=== PATIENT | female | born 1935 | race African-American/Black ===

== ENCOUNTER 2021-11-18 10:52 | Inpatient (IN) | payer MEDICARE, MEDICAID ==
[~2021-11-18] VITALS: Ht 162.6 cm; Wt 105.7 kg
[~2021-11-18 10:52] MED LIST: AMLO10TA80 PO; ASPI-1073 PO; BETH25TA PO; DOCU-138 PO; FURO40TA5 PO; ISOSORBIDE PO; METR500T PO; POTASSIUM PO; PRAV40TA PO; PRAV40TA58; SYSOS OP
[2021-11-18 13:01] LABS: HEMATOCRIT. 36.3 % (36.0-48.0); HEMOGLOBIN. 11.9 g/dL (12.0-16.0); MEAN CORPUSCULAR HEMOGLOBIN 28.2 pg (28.0-32.0); MEAN CORPUSCULAR VOLUME 85.9 fL (81.0-99.0); MEAN PLATELET VOLUME 10.9 fl (7.4-10.4); PLATELET 114 x1000/uL (130-400); RED BLOOD CELL COUNT 4.23 mill/uL (4.2-5.4); RED CELL DISTRIBUTION WIDTH 16.7 % (11.6-14.6)
[2021-11-18 13:08] LABS: CHLORIDE 110 mEq/L (98-107)
[2021-11-18 13:17] LABS: ETHANOL BLOOD < 10 mg/dL
[2021-11-18 13:24] LABS: CREATINE KINASE 326 IU/L (26-192)
[2021-11-18 13:34] LABS: PLATELET ESTIMATE SLIGHTLY DECREASED
[2021-11-18] MEDS ORDERED: LIDOCAINE HCL/PF 1% 10 MG/ML 5ML VIAL ONE (14:19)
[2021-11-18] MEDS ORDERED: SODIUM CHLORIDE 0.9% 1,000 ML IV ONE (16:00)
[2021-11-18] MEDS ORDERED: AZITHROMYCIN 500MG/250ML 250 ML IV ONE (16:15)
[2021-11-18] MEDS ORDERED: CEFTRIAXONE 1 G PREMIX 50 ML IV ONE (16:15)
[2021-11-18] MEDS ORDERED: IOHEXOL-350 100 ML BOTTLE ONE (16:52)
[2021-11-18] MEDS ORDERED: CEFTRIAXONE 1 G PREMIX 50 ML IV NR (17:15)
[2021-11-18] MEDS ORDERED: AZITHROMYCIN 500MG/250ML 250 ML IV NR (17:15)
[2021-11-18] MEDS ORDERED: ENOXAPARIN 100MG/ML SYR SUBCUT ONE (17:45)
[2021-11-18 22:06] VITALS: BP 160/125
[2021-11-19] VITALS (12 sets, daily range): BP systolic 120–176; BP diastolic 9–89
[2021-11-19] MEDS ORDERED: DEXTROSE 50% WATER 50ML SYRINGE IV PRN (00:15)
[2021-11-19] MEDS: DEXT 5%/0.9% NACL KCL 20MEQ/L 1,000 ML IV SCH ×2 (04:20→18:41)
[2021-11-19] MEDS ORDERED: SODI15DR7 EACHEYE (04:36)
[2021-11-19] MEDS ORDERED: ALLO100T PO (04:36)
[2021-11-19] MEDS ORDERED: FOLI-43 MT (04:36)
[2021-11-19] MEDS ORDERED: OXYC1TAB5 MT (04:36)
[2021-11-19] MEDS ORDERED: HYDR-4135 PO (04:36)
[2021-11-19] MEDS ORDERED: LOSA100T32 PO (04:36)
[2021-11-19] MEDS ORDERED: PRAV40TA58 PO (04:36)
[2021-11-19] MEDS ORDERED: PREG150C PO (04:36)
[2021-11-19] MEDS ORDERED: NETA2.5D EACHEYE (04:36)
[2021-11-19] MEDS ORDERED: LINA5TAB PO (04:36)
[2021-11-19] MEDS ORDERED: FERR-71 MT (04:36)
[2021-11-19] MEDS ORDERED: HYDR1SYR7 MT (04:36)
[2021-11-19 05:50] LABS: BASOPHILS % 0.3 % (0.0-2.0); EOSINOPHILS % 0.1 % (0.0-5.0); HEMATOCRIT. 34.9 % (36.0-48.0); HEMOGLOBIN. 11.3 g/dL (12.0-16.0); LYMPHOCYTES % 7.1 % (20.0-50.0); MEAN CORPUSCULAR HEMOGLOBIN 28.2 pg (28.0-32.0); MEAN CORPUSCULAR VOLUME 86.9 fL (81.0-99.0); MONOCYTES % 7.7 % (2.0-8.0); NEUTROPHILS % 84.8 % (40.0-76.0); PLATELET 98 x1000/uL (130-400); RED BLOOD CELL COUNT 4.01 mill/uL (4.2-5.4); RED CELL DISTRIBUTION WIDTH 16.4 % (11.6-14.6)
[2021-11-19 06:02] LABS: CHLORIDE 112 mEq/L (98-107)
[2021-11-19 06:17] LABS: HDL CHOLESTEROL 67 mg/dL (40-59); LDL CHOLESTEROL 49 mg/dL (5-100)
[2021-11-19] MEDS: INSULIN LISPRO 100 UNITS/ML SUBCUT SCH ×4 (07:04→21:00)
[2021-11-19] MEDS: BLOOD SUGAR DIAGNOSTIC STRIP TEST SCH ×4 (07:04→21:16)
[2021-11-19] MEDS ORDERED: ENOXAPARIN 40MG/0.4ML SYR SUBCUT SCH (09:00)
[2021-11-19] MEDS: HYDRALAZINE 20MG/ML VIAL IV PRN (09:57)
[2021-11-19] MEDS: PANTOPRAZOLE SODIUM 40 MG/VIAL IV SCH (09:57)
[2021-11-19] MEDS: AMLODIPINE 10MG TABLET PO SCH (10:15)
[2021-11-19] MEDS ORDERED: METOPROLOL TARTRATE 5MG/5ML VIAL IV PRN (12:00)
[2021-11-19] MEDS ORDERED: NALOXONE HCL 0.4MG/ML VIAL IV PRN (12:45)
[2021-11-19] MEDS ORDERED: SODIUM CHLORIDE EACHEYE SCH (13:00)
[2021-11-19] MEDS ORDERED: AMIODARONE HCL 900 MG in DEXT 5% WATER 482 ML IV SCH (13:00)
[2021-11-19] MEDS ORDERED: [UNRECOGNIZED DRUG - OTHER] EACHEYE SCH (13:00)
[2021-11-19] MEDS ORDERED: AMIODARONE HCL 150 MG in DEXT 5% WATER 100 ML IV NR (13:30)
[2021-11-19] MEDS ORDERED: IOHEXOL-300 100 ML BOTTLE ONE (18:27)
[2021-11-19] MEDS: POLYVINYL ALCOHOL OPHTH DROPS 15ML BOTHEYE SCH (18:41)
[2021-11-19] MEDS: IPRATROPIUM BROMIDE (0.02%) 0.5MG/2.5ML NEB HHN SCH (20:28)
[2021-11-19] MEDS: BUDESONIDE 0.5MG/2ML NEB HHN SCH (20:28)
[2021-11-19] MEDS ORDERED: LORAZEPAM 2MG/ML CPJ IV PRN (21:45)
[2021-11-19] MEDS ORDERED: ACETAMINOPHEN 650MG SUPP PR PRN (22:00)
[2021-11-19 23:40] LABS: BASOPHILS % 0.4 % (0.0-2.0); EOSINOPHILS % 0.1 % (0.0-5.0); HEMATOCRIT. 35.3 % (36.0-48.0); HEMOGLOBIN. 11.3 g/dL (12.0-16.0); MEAN CORPUSCULAR VOLUME 87.2 fL (81.0-99.0); MEAN PLATELET VOLUME 11.8 fl (7.4-10.4); MONOCYTES % 8.9 % (2.0-8.0); NEUTROPHILS % 81.6 % (40.0-76.0); PLATELET 104 x1000/uL (130-400); RED BLOOD CELL COUNT 4.05 mill/uL (4.2-5.4); RED CELL DISTRIBUTION WIDTH 16.8 % (11.6-14.6)
[2021-11-20] VITALS (15 sets, daily range): BP systolic 111–175; BP diastolic 62–92
[2021-11-20] MEDS: POLYVINYL ALCOHOL OPHTH DROPS 15ML BOTHEYE SCH ×4 (02:03→17:24)
[2021-11-20] MEDS: DEXT 5%/0.9% NACL KCL 20MEQ/L 1,000 ML IV SCH (04:59)
[2021-11-20 05:32] LABS: BASOPHILS % 0.3 % (0.0-2.0); EOSINOPHILS % 0.9 % (0.0-5.0); HEMATOCRIT. 32.5 % (36.0-48.0); HEMOGLOBIN. 10.7 g/dL (12.0-16.0); LYMPHOCYTES % 7.4 % (20.0-50.0); MEAN CORPUSCULAR HEMOGLOBIN 28.1 pg (28.0-32.0); MEAN CORPUSCULAR VOLUME 85.6 fL (81.0-99.0); MEAN PLATELET VOLUME 11.1 fl (7.4-10.4); MONOCYTES % 8.4 % (2.0-8.0); PLATELET 99 x1000/uL (130-400); RED BLOOD CELL COUNT 3.79 mill/uL (4.2-5.4); RED CELL DISTRIBUTION WIDTH 16.9 % (11.6-14.6)
[2021-11-20] MEDS: BLOOD SUGAR DIAGNOSTIC STRIP TEST SCH ×4 (06:43→21:47)
[2021-11-20] MEDS: INSULIN LISPRO 100 UNITS/ML SUBCUT SCH ×4 (07:30→21:00)
[2021-11-20] MEDS: AMLODIPINE 10MG TABLET PO SCH (07:31)
[2021-11-20] MEDS: PANTOPRAZOLE SODIUM 40 MG/VIAL IV SCH (07:41)
[2021-11-20] MEDS: IPRATROPIUM BROMIDE (0.02%) 0.5MG/2.5ML NEB HHN SCH ×3 (08:43→19:38)
[2021-11-20] MEDS: BUDESONIDE 0.5MG/2ML NEB HHN SCH ×2 (08:43→19:38)
[2021-11-20] MEDS ORDERED: ENOXAPARIN 30MG/0.3ML SYR SUBCUT SCH (09:00)
[2021-11-20] MEDS: HYDRALAZINE 20MG/ML VIAL IV PRN (11:04)
[2021-11-20] MEDS: MORPHINE SULFATE 2 MG/ML CPJ (NOT FOR IM USE) IV PRN ×2 (12:20→17:25)
[2021-11-20] MEDS ORDERED: IOHEXOL-300 100 ML BOTTLE ONE (20:08)
[2021-11-20] MEDS ORDERED: AMIODARONE HCL 900 MG in DEXT 5% WATER 482 ML IV SCH (20:30)
[2021-11-20] MEDS ORDERED: AMIODARONE HCL 150 MG in DEXT 5% WATER 100 ML IV NR (20:30)
[2021-11-21] VITALS (12 sets, daily range): BP systolic 123–156; BP diastolic 60–91
[2021-11-21] MEDS: IPRATROPIUM BROMIDE (0.02%) 0.5MG/2.5ML NEB HHN SCH ×4 (00:36→19:15)
[2021-11-21] MEDS: POLYVINYL ALCOHOL OPHTH DROPS 15ML BOTHEYE SCH ×5 (01:37→23:31)
[2021-11-21] MEDS: BLOOD SUGAR DIAGNOSTIC STRIP TEST SCH ×4 (06:55→21:17)
[2021-11-21] MEDS: INSULIN LISPRO 100 UNITS/ML SUBCUT SCH ×4 (08:00→21:00)
[2021-11-21] MEDS: BUDESONIDE 0.5MG/2ML NEB HHN SCH (08:25)
[2021-11-21] MEDS ORDERED: ENOXAPARIN 40MG/0.4ML SYR SUBCUT SCH (09:00)
[2021-11-21] MEDS: PANTOPRAZOLE SODIUM 40 MG/VIAL IV SCH ×2 (09:41→09:57)
[2021-11-21] MEDS: AMLODIPINE 10MG TABLET PO SCH ×2 (09:42→09:58)
[2021-11-21 10:30] LABS: CLARITY URINE CLEAR (CLEAR); COLOR URINE YELLOW (YELLOW); KETONES URINE NEGATIVE (NEGATIVE); LEUKOCYTE ESTERASE URINE NEGATIVE (NEGATIVE); NITRITE URINE NEGATIVE (NEGATIVE); OCCULT BLOOD URINE TRACE (NEGATIVE); PROTEIN URINE 3+ (NEGATIVE); SPECIFIC GRAVITY URINE 1.035 (1.005-1.030); UROBILINOGEN URINE 0.2 E.U./dL (0.2-1.0)
[2021-11-21 13:59] LABS: *AMPHETAMINES SCREEN URINE NEGATIVE (NEGATIVE); *BARBITURATES SCREEN URINE NEGATIVE (NEGATIVE); *BENZODIAZEPINES SCREEN URINE NEGATIVE (NEGATIVE); *COCAINE SCREEN URINE NEGATIVE (NEGATIVE); CANNABINOID URINE SCREEN NEGATIVE (NEGATIVE); METHADONE URINE SCREEN NEGATIVE (NEGATIVE); OPIATES URINE SCREEN PRESUMTIVE POSITIVE (NEGATIVE); PHENCYCLIDINE URINE SCREEN NEGATIVE (NEGATIVE)
[2021-11-21] MEDS: MORPHINE SULFATE 2 MG/ML CPJ (NOT FOR IM USE) IV PRN ×2 (18:12→22:25)
[2021-11-21] MEDS: EYE EACHEYE SCH (18:15)
[2021-11-21] MEDS: SODIUM CHLORIDE 5% EACHEYE SCH (18:15)
[2021-11-21] MEDS ORDERED: NETARSUDIL MESYLATE EACHEYE SCH (21:00)
[2021-11-22] VITALS (10 sets, daily range): BP systolic 137–165; BP diastolic 42–99
[2021-11-22] MEDS: BUDESONIDE 0.5MG/2ML NEB HHN SCH ×2 (01:15→07:45)
[2021-11-22] MEDS: IPRATROPIUM BROMIDE (0.02%) 0.5MG/2.5ML NEB HHN SCH ×4 (01:58→20:11)
[2021-11-22] MEDS: HYDRALAZINE 20MG/ML VIAL IV PRN (04:01)
[2021-11-22] MEDS: POLYVINYL ALCOHOL OPHTH DROPS 15ML BOTHEYE SCH ×4 (05:18→23:56)
[2021-11-22] MEDS: BLOOD SUGAR DIAGNOSTIC STRIP TEST SCH ×4 (07:19→21:01)
[2021-11-22] MEDS: INSULIN LISPRO 100 UNITS/ML SUBCUT SCH ×4 (07:19→21:00)
[2021-11-22] MEDS: PANTOPRAZOLE SODIUM 40 MG/VIAL IV SCH (10:31)
[2021-11-22] MEDS: AMLODIPINE 10MG TABLET PO SCH (10:31)
[2021-11-22] MEDS: SODIUM CHLORIDE 5% EACHEYE SCH ×3 (10:32→17:28)
[2021-11-22] MEDS: EYE EACHEYE SCH ×3 (10:32→17:28)
[2021-11-22 11:46] LABS: HEMATOCRIT. 34.7 % (36.0-48.0); HEMOGLOBIN. 11.3 g/dL (12.0-16.0); MEAN CORPUSCULAR HEMOGLOBIN 28.2 pg (28.0-32.0); MEAN CORPUSCULAR VOLUME 86.5 fL (81.0-99.0); MEAN PLATELET VOLUME 11.1 fl (7.4-10.4); PLATELET 114 x1000/uL (130-400); RED BLOOD CELL COUNT 4.01 mill/uL (4.2-5.4); RED CELL DISTRIBUTION WIDTH 16.6 % (11.6-14.6)
[2021-11-22 12:49] LABS: PLATELET ESTIMATE SLIGHTLY DECREASED
[2021-11-22] MEDS ORDERED: CEFTRIAXONE 1 G PREMIX 50 ML IV SCH (15:30)
[2021-11-22] MEDS: CEFTRIAXONE 1,000 MG in DEXTROSE 5% WATER 50 ML IV SCH (17:28)
[2021-11-22] MEDS: AMIODARONE HCL 200 MG TABLET PO SCH (20:40)
[2021-11-23] VITALS (10 sets, daily range): BP systolic 123–157; BP diastolic 54–110
[2021-11-23] MEDS: IPRATROPIUM BROMIDE (0.02%) 0.5MG/2.5ML NEB HHN SCH ×4 (01:02→20:58)
[2021-11-23] MEDS: POLYVINYL ALCOHOL OPHTH DROPS 15ML BOTHEYE SCH ×3 (06:03→17:30)
[2021-11-23] MEDS: INSULIN LISPRO 100 UNITS/ML SUBCUT SCH ×4 (08:00→21:00)
[2021-11-23] MEDS: BLOOD SUGAR DIAGNOSTIC STRIP TEST SCH ×4 (08:03→21:20)
[2021-11-23] MEDS: AMIODARONE HCL 200 MG TABLET PO SCH ×2 (08:27→21:20)
[2021-11-23] MEDS: PANTOPRAZOLE SODIUM 40 MG/VIAL IV SCH (08:28)
[2021-11-23] MEDS: AMLODIPINE 10MG TABLET PO SCH (08:28)
[2021-11-23] MEDS: SODIUM CHLORIDE 5% EACHEYE SCH ×3 (08:29→17:30)
[2021-11-23] MEDS: EYE EACHEYE SCH ×3 (08:29→17:30)
[2021-11-23] MEDS: CEFTRIAXONE 1,000 MG in DEXTROSE 5% WATER 50 ML IV SCH (17:30)
[2021-11-23] MEDS: APIXABAN 5 MG TABLET PO SCH (17:31)
[2021-11-24] VITALS (13 sets, daily range): BP systolic 133–167; BP diastolic 54–100
[2021-11-24] MEDS: POLYVINYL ALCOHOL OPHTH DROPS 15ML BOTHEYE SCH ×4 (00:14→17:45)
[2021-11-24] MEDS: IPRATROPIUM BROMIDE (0.02%) 0.5MG/2.5ML NEB HHN SCH ×3 (02:05→15:04)
[2021-11-24] MEDS: MORPHINE SULFATE 2 MG/ML CPJ (NOT FOR IM USE) IV PRN (04:19)
[2021-11-24] MEDS: BLOOD SUGAR DIAGNOSTIC STRIP TEST SCH ×4 (06:46→21:30)
[2021-11-24] MEDS: INSULIN LISPRO 100 UNITS/ML SUBCUT SCH ×4 (07:15→21:00)
[2021-11-24] MEDS: PANTOPRAZOLE SODIUM 40 MG/VIAL IV SCH (09:03)
[2021-11-24] MEDS: APIXABAN 5 MG TABLET PO SCH ×2 (09:03→17:10)
[2021-11-24] MEDS: EYE EACHEYE SCH ×3 (09:03→17:09)
[2021-11-24] MEDS: SODIUM CHLORIDE 5% EACHEYE SCH ×3 (09:03→17:09)
[2021-11-24] MEDS: AMLODIPINE 10MG TABLET PO SCH (09:04)
[2021-11-24] MEDS: AMIODARONE HCL 200 MG TABLET PO SCH ×2 (09:04→21:28)
[2021-11-24] MEDS: RHOPRESSA 0.02% OP SCH (15:00)
[2021-11-24] MEDS: CEFTRIAXONE 1,000 MG in DEXTROSE 5% WATER 50 ML IV SCH (17:09)
[2021-11-24] MEDS: IPRATROPIUM/ALBUTEROL 0.5-3(2.5)MG/3ML NEB HHN PRN (20:51)
[2021-11-24] MEDS ORDERED: NON FORMULARY PATIENT HOME MED OP SCH (21:00)
[2021-11-24] MEDS: MURO OP SCH (21:28)
[2021-11-25] VITALS (19 sets, daily range): BP systolic 130–162; BP diastolic 42–69
[2021-11-25] MEDS: POLYVINYL ALCOHOL OPHTH DROPS 15ML BOTHEYE SCH ×4 (00:01→17:30)
[2021-11-25] MEDS: BLOOD SUGAR DIAGNOSTIC STRIP TEST SCH ×4 (06:05→21:36)
[2021-11-25] MEDS: INSULIN LISPRO 100 UNITS/ML SUBCUT SCH ×4 (08:00→21:00)
[2021-11-25] MEDS ORDERED: NON FORMULARY PATIENT HOME MED OP SCH (09:00)
[2021-11-25] MEDS: AMLODIPINE 10MG TABLET PO SCH (09:01)
[2021-11-25] MEDS: APIXABAN 5 MG TABLET PO SCH ×2 (09:01→17:30)
[2021-11-25] MEDS: AMIODARONE HCL 200 MG TABLET PO SCH ×2 (09:01→20:55)
[2021-11-25] MEDS: RHOPRESSA 0.02% OP SCH (09:01)
[2021-11-25] MEDS: SODIUM CHLORIDE 5% EACHEYE SCH ×3 (09:02→17:30)
[2021-11-25] MEDS: PANTOPRAZOLE SODIUM 40 MG/VIAL IV SCH (09:02)
[2021-11-25] MEDS: EYE EACHEYE SCH ×3 (09:02→17:30)
[2021-11-25] MEDS: IPRATROPIUM/ALBUTEROL 0.5-3(2.5)MG/3ML NEB HHN PRN ×2 (15:19→21:21)
[2021-11-25 16:17] LABS: BASOPHILS % 0.7 % (0.0-2.0); EOSINOPHILS % 3.9 % (0.0-5.0); HEMATOCRIT. 32.3 % (36.0-48.0); HEMOGLOBIN. 10.3 g/dL (12.0-16.0); MEAN CORPUSCULAR HEMOGLOBIN 27.9 pg (28.0-32.0); MEAN CORPUSCULAR VOLUME 87.8 fL (81.0-99.0); MEAN PLATELET VOLUME 10.2 fl (7.4-10.4); MONOCYTES % 13.6 % (2.0-8.0); NEUTROPHILS % 71.8 % (40.0-76.0); PLATELET 171 x1000/uL (130-400); RED BLOOD CELL COUNT 3.67 mill/uL (4.2-5.4); RED CELL DISTRIBUTION WIDTH 16.8 % (11.6-14.6)
[2021-11-25] MEDS: CEFTRIAXONE 1,000 MG in DEXTROSE 5% WATER 50 ML IV SCH (17:30)
[2021-11-25] MEDS: MURO OP SCH (21:43)
[2021-11-26] VITALS (27 sets, daily range): BP systolic 120–184; BP diastolic 39–105
[2021-11-26] MEDS: POLYVINYL ALCOHOL OPHTH DROPS 15ML BOTHEYE SCH ×4 (00:09→17:19)
[2021-11-26] MEDS: IPRATROPIUM/ALBUTEROL 0.5-3(2.5)MG/3ML NEB HHN PRN ×2 (02:21→13:15)
[2021-11-26] MEDS: BLOOD SUGAR DIAGNOSTIC STRIP TEST SCH ×4 (07:49→21:16)
[2021-11-26] MEDS: INSULIN LISPRO 100 UNITS/ML SUBCUT SCH ×4 (08:00→21:00)
[2021-11-26] MEDS: AMIODARONE HCL 200 MG TABLET PO SCH ×2 (09:12→21:28)
[2021-11-26] MEDS: AMLODIPINE 10MG TABLET PO SCH (09:12)
[2021-11-26] MEDS: RHOPRESSA 0.02% OP SCH (09:13)
[2021-11-26] MEDS: PANTOPRAZOLE SODIUM 40 MG/VIAL IV SCH (09:13)
[2021-11-26] MEDS: SODIUM CHLORIDE 5% EACHEYE SCH ×3 (09:13→17:19)
[2021-11-26] MEDS: EYE EACHEYE SCH ×3 (09:13→17:19)
[2021-11-26] MEDS: APIXABAN 5 MG TABLET PO SCH ×2 (09:16→17:20)
[2021-11-26] MEDS: CEFTRIAXONE 1,000 MG in DEXTROSE 5% WATER 50 ML IV SCH (17:18)
[2021-11-26] MEDS ORDERED: IPRATROPIUM/ALBUTEROL 0.5-3(2.5)MG/3ML NEB HHN SCH (18:00)
[2021-11-26] MEDS: MURO OP SCH (21:28)
[2021-11-26] MEDS ORDERED: HYDROCODONE/ACETAMINOPHEN 5/325MG TABLET PO PRN (21:45)
== END 2021-11-26 23:56 | DRG 64 ==
LOC: ER 11:02 → 3WST 17:18 → EDBEDREQ 17:22 → EDBEDREQSVC 17:22 → EDBEDREQTM 17:22 → ENRESERV 19:24 → 5EST 11-19 13:10
PROVIDERS: ADMIT Internal Medicine; ATTEND Internal Medicine
PROC: 02HV33Z Insertion of Infusion Device into Superior Vena Cava, Percutaneous Approach (ICD-10-PCS; 2021-11-19)
PROC: B548ZZA Ultrasonography of Superior Vena Cava, Guidance (ICD-10-PCS; 2021-11-19)
PROC: B5181ZA Fluoroscopy of Superior Vena Cava using Low Osmolar Contrast, Guidance (ICD-10-PCS; 2021-11-19)
PROC: 4A10X4Z Monitoring of Central Nervous Electrical Activity, External Approach (ICD-10-PCS; principal; 2021-11-20)
DX: I63.233 Cerebral infarction due to unspecified occlusion or stenosis of bilateral carotid arteries (principal); I21.4 Non-ST elevation (NSTEMI) myocardial infarction; N17.0 Acute kidney failure with tubular necrosis; G93.40 Encephalopathy, unspecified; Z68.41 Body mass index [BMI] 40.0-44.9, adult; E78.5 Hyperlipidemia, unspecified; E87.8 Other disorders of electrolyte and fluid balance, not elsewhere classified; D69.6 Thrombocytopenia, unspecified; E11.9 Type 2 diabetes mellitus without complications; E66.01 Morbid (severe) obesity due to excess calories; I11.0 Hypertensive heart disease with heart failure; M19.90 Unspecified osteoarthritis, unspecified site; I48.0 Paroxysmal atrial fibrillation; I25.10 Atherosclerotic heart disease of native coronary artery without angina pectoris; R60.9 Edema, unspecified; I16.0 Hypertensive urgency; L89.626 Pressure-induced deep tissue damage of left heel; I72.8 Aneurysm of other specified arteries; I50.9 Heart failure, unspecified; J44.9 Chronic obstructive pulmonary disease, unspecified; W18.39XA Other fall on same level, initial encounter; K21.9 Gastro-esophageal reflux disease without esophagitis; M77.9 Enthesopathy, unspecified; Z87.891 Personal history of nicotine dependence; Z95.5 Presence of coronary angioplasty implant and graft; Z79.82 Long term (current) use of aspirin; Z79.899 Other long term (current) drug therapy; Y93.89 Activity, other specified; Y92.098 Other place in other non-institutional residence as the place of occurrence of the external cause; Y99.8 Other external cause status; Z86.73 Personal history of transient ischemic attack (TIA), and cerebral infarction without residual deficits
CPT/HCPCS: 36415; 36573; 70496; 70498; 70551; 71045; 71260; 73610; 73630; 80048; 80053; 80061; 80305; 80320; 81003; 82140; 82270; 82550; 82962; 83036; 83605; 83880; 84145; 84443; 84484; 85025; 92610; 93005; 93306; 94640; 94664; 95816; 97110; 97163; 97166; 97530; 99291; C1725; C9113; J0282; J0360; J0456; J0696; J2060; J2270; J3490; J7030; J7060; J7626; Q9967; G0480

== ENCOUNTER 2021-11-26 23:40 | Inpatient (IN) | payer MEDICARE, MEDICAID ==
[~2021-11-26] VITALS: Ht 162.6 cm; Wt 94.3 kg
[2021-11-26 22:40] VITALS: BP 104/48
[2021-11-26 23:30] VITALS: BP 104/48
[~2021-11-26 23:40] MED LIST changes: +ALLO100T PO; +FERR-71 MT; +FOLI-43 MT; +HYDR-4135 PO; +HYDR1SYR7 MT; +LINA5TAB PO; +LOSA100T32 PO; +NETA2.5D EACHEYE; +OXYC1TAB5 MT; +PRAV40TA58 PO; +PREG150C PO; +SODI15DR7 EACHEYE
[2021-11-27] MEDS ORDERED: NON FORMULARY PATIENT HOME MED XX SCH ×3 (01:00)
[2021-11-27] MEDS ORDERED: CEFTRIAXONE 1,000 MG in DEXTROSE 5% WATER 50 ML IV SCH (01:00)
[2021-11-27] MEDS ORDERED: HYDRALAZINE 20MG/ML VIAL IV PRN (01:15)
[2021-11-27] MEDS ORDERED: ACETAMINOPHEN 650MG SUPP PR PRN (01:15)
[2021-11-27] MEDS ORDERED: DEXTROSE 50% WATER 50ML SYRINGE IV PRN (01:15)
[2021-11-27] MEDS ORDERED: METOPROLOL TARTRATE 5MG/5ML VIAL IV PRN (01:15)
[2021-11-27] MEDS ORDERED: HYDRALAZINE 10 MG in SODIUM CHLORIDE 0.9% 49.5 ML IV PRN (02:00)
[2021-11-27 08:00] VITALS: BP 113/81
[2021-11-27] MEDS: INSULIN LISPRO 100 UNITS/ML SUBCUT SCH ×4 (09:00→21:00)
[2021-11-27] MEDS: IPRATROPIUM/ALBUTEROL 0.5-3(2.5)MG/3ML NEB HHN SCH ×3 (09:38→19:58)
[2021-11-27] MEDS ORDERED: BISACODYL 5MG TABLET PO PRN (11:00)
[2021-11-27] MEDS: APIXABAN 5 MG TABLET PO SCH ×2 (11:12→17:12)
[2021-11-27] MEDS: PANTOPRAZOLE 40MG DR TABLET PO SCH (11:12)
[2021-11-27] MEDS: AMIODARONE HCL 200 MG TABLET PO SCH ×2 (11:13→21:58)
[2021-11-27] MEDS: AMLODIPINE 10MG TABLET PO SCH (11:14)
[2021-11-27] MEDS: BLOOD SUGAR DIAGNOSTIC STRIP TEST SCH ×3 (11:15→21:00)
[2021-11-27 12:00] VITALS: BP 113/88
[2021-11-27] MEDS: TRAMADOL 50MG TABLET PO PRN (12:17)
[2021-11-27] MEDS: POLYVINYL ALCOHOL OPHTH DROPS 15ML BOTHEYE SCH ×2 (12:18→17:12)
[2021-11-27 19:50] VITALS: BP 107/62
[2021-11-27 20:30] VITALS: BP 151/46
[2021-11-27] MEDS: [UNRECOGNIZED DRUG - OTHER] OP SCH ×2 (21:58→21:59)
[2021-11-28] MEDS: IPRATROPIUM/ALBUTEROL 0.5-3(2.5)MG/3ML NEB HHN SCH ×3 (01:42→19:49)
[2021-11-28] MEDS: BLOOD SUGAR DIAGNOSTIC STRIP TEST SCH ×4 (06:25→21:36)
[2021-11-28] MEDS: PANTOPRAZOLE 40MG DR TABLET PO SCH (06:28)
[2021-11-28] MEDS: POLYVINYL ALCOHOL OPHTH DROPS 15ML BOTHEYE SCH ×4 (06:29→17:16)
[2021-11-28 07:54] VITALS: BP 141/48
[2021-11-28] MEDS: INSULIN LISPRO 100 UNITS/ML SUBCUT SCH ×4 (08:11→21:00)
[2021-11-28] MEDS: AMIODARONE HCL 200 MG TABLET PO SCH ×2 (09:30→21:14)
[2021-11-28] MEDS: APIXABAN 5 MG TABLET PO SCH ×2 (09:30→17:00)
[2021-11-28] MEDS: AMLODIPINE 10MG TABLET PO SCH (09:30)
[2021-11-28] MEDS: TRAMADOL 50MG TABLET PO PRN (09:31)
[2021-11-28] MEDS: RHOPRESSA 0.02% OP SCH (09:32)
[2021-11-28] MEDS: SODIUM CHLORIDE 5% OP SCH ×3 (09:32→17:00)
[2021-11-28] MEDS: [UNRECOGNIZED DRUG - OTHER] OP SCH ×3 (09:32→17:00)
[2021-11-28 15:50] LABS: EOSINOPHILS % 2.9 % (0.0-5.0); HEMATOCRIT. 27.3 % (36.0-48.0); HEMOGLOBIN. 8.8 g/dL (12.0-16.0); LYMPHOCYTES % 8.3 % (20.0-50.0); MEAN CORPUSCULAR HEMOGLOBIN 27.6 pg (28.0-32.0); MEAN PLATELET VOLUME 9.5 fl (7.4-10.4); MONOCYTES % 8.8 % (2.0-8.0); PLATELET 245 x1000/uL (130-400); RED BLOOD CELL COUNT 3.17 mill/uL (4.2-5.4); RED CELL DISTRIBUTION WIDTH 16.6 % (11.6-14.6)
[2021-11-28] MEDS: METHYL SALICYLATE/MENTHOL CREAM 85GM TOP SCH ×2 (17:00→21:37)
[2021-11-28] MEDS: LIDOCAINE 5% PATCH TOP SCH (17:15)
[2021-11-28 21:00] VITALS: BP 158/50
[2021-11-28] MEDS: GUAIFENESIN 600MG ER TABLET PO SCH (21:14)
[2021-11-28] MEDS: [UNRECOGNIZED DRUG - OTHER] OP SCH (21:21)
[2021-11-29] MEDS: POLYVINYL ALCOHOL OPHTH DROPS 15ML BOTHEYE SCH ×4 (00:58→18:12)
[2021-11-29] MEDS: IPRATROPIUM/ALBUTEROL 0.5-3(2.5)MG/3ML NEB HHN SCH ×4 (01:56→21:38)
[2021-11-29 06:24] LABS: BASOPHILS % 0.9 % (0.0-2.0); EOSINOPHILS % 2.7 % (0.0-5.0); HEMATOCRIT. 27.2 % (36.0-48.0); HEMOGLOBIN. 8.8 g/dL (12.0-16.0); LYMPHOCYTES % 7.4 % (20.0-50.0); MEAN CORPUSCULAR HEMOGLOBIN 27.6 pg (28.0-32.0); MEAN CORPUSCULAR VOLUME 85.4 fL (81.0-99.0); MEAN PLATELET VOLUME 9.5 fl (7.4-10.4); MONOCYTES % 7.4 % (2.0-8.0); NEUTROPHILS % 81.6 % (40.0-76.0); PLATELET 231 x1000/uL (130-400); RED BLOOD CELL COUNT 3.19 mill/uL (4.2-5.4); RED CELL DISTRIBUTION WIDTH 16.4 % (11.6-14.6)
[2021-11-29 06:36] LABS: CHLORIDE 112 mEq/L (98-107)
[2021-11-29] MEDS: PANTOPRAZOLE 40MG DR TABLET PO SCH (06:49)
[2021-11-29 06:51] LABS: TOTAL IRON BINDING CAPACITY 177 ug/dL (250-450)
[2021-11-29] MEDS: BLOOD SUGAR DIAGNOSTIC STRIP TEST SCH ×4 (06:53→21:36)
[2021-11-29] MEDS: INSULIN LISPRO 100 UNITS/ML SUBCUT SCH ×4 (06:54→21:00)
[2021-11-29] MEDS: METHYL SALICYLATE/MENTHOL CREAM 85GM TOP SCH ×4 (06:57→23:00)
[2021-11-29 07:04] LABS: VITAMIN B12 SERUM 476 pg/mL (211-911)
[2021-11-29 07:05] LABS: FOLIC ACID (FOLATE) SERUM > 20.00 ng/mL (>5.38)
[2021-11-29 07:12] LABS: FERRITIN 125 ng/mL (10-291)
[2021-11-29 08:00] VITALS: BP 153/52
[2021-11-29] MEDS: GUAIFENESIN 600MG ER TABLET PO SCH ×2 (10:10→21:31)
[2021-11-29] MEDS: AMIODARONE HCL 200 MG TABLET PO SCH ×2 (10:10→21:31)
[2021-11-29] MEDS: DOCUSATE SODIUM 250MG CAPSULE PO PRN (10:10)
[2021-11-29] MEDS: AMLODIPINE 10MG TABLET PO SCH (10:10)
[2021-11-29] MEDS: APIXABAN 5 MG TABLET PO SCH ×2 (10:10→18:11)
[2021-11-29] MEDS: LIDOCAINE 5% PATCH TOP SCH (10:11)
[2021-11-29] MEDS: CYANOCOBALAMIN 1000MCG/ML VIAL IM SCH (10:15)
[2021-11-29] MEDS: [UNRECOGNIZED DRUG - OTHER] OP SCH ×3 (10:16→18:11)
[2021-11-29] MEDS: SODIUM CHLORIDE 5% OP SCH ×3 (10:16→18:11)
[2021-11-29] MEDS: RHOPRESSA 0.02% OP SCH (10:41)
[2021-11-29] MEDS: ACETAMINOPHEN 325MG TABLET PO PRN ×2 (10:41→21:35)
[2021-11-29] MEDS: ASCORBIC ACID 500 MG TABLET PO SCH (12:43)
[2021-11-29] MEDS: FERROUS SULFATE 325MG TABLET PO SCH ×2 (13:00→18:11)
[2021-11-29 20:00] VITALS: BP 147/52
[2021-11-29] MEDS: [UNRECOGNIZED DRUG - OTHER] OP SCH (21:35)
[2021-11-30] MEDS: POLYVINYL ALCOHOL OPHTH DROPS 15ML BOTHEYE SCH ×4 (00:28→17:14)
[2021-11-30] MEDS: IPRATROPIUM/ALBUTEROL 0.5-3(2.5)MG/3ML NEB HHN SCH ×4 (02:10→22:08)
[2021-11-30] MEDS: METHYL SALICYLATE/MENTHOL CREAM 85GM TOP SCH ×3 (06:08→17:14)
[2021-11-30] MEDS: BLOOD SUGAR DIAGNOSTIC STRIP TEST SCH ×4 (06:13→21:00)
[2021-11-30] MEDS: PANTOPRAZOLE 40MG DR TABLET PO SCH (06:17)
[2021-11-30] MEDS: INSULIN LISPRO 100 UNITS/ML SUBCUT SCH ×4 (07:59→21:00)
[2021-11-30 08:00] VITALS: BP 145/50
[2021-11-30] MEDS: SODIUM CHLORIDE 5% OP SCH ×3 (09:48→17:13)
[2021-11-30] MEDS: CYANOCOBALAMIN 1000MCG/ML VIAL IM SCH (09:48)
[2021-11-30] MEDS: RHOPRESSA 0.02% OP SCH (09:48)
[2021-11-30] MEDS: [UNRECOGNIZED DRUG - OTHER] OP SCH ×3 (09:48→17:13)
[2021-11-30] MEDS: APIXABAN 5 MG TABLET PO SCH ×2 (09:48→17:12)
[2021-11-30] MEDS: AMLODIPINE 10MG TABLET PO SCH (09:48)
[2021-11-30] MEDS: FERROUS SULFATE 325MG TABLET PO SCH ×3 (09:48→17:12)
[2021-11-30] MEDS: GUAIFENESIN 600MG ER TABLET PO SCH ×2 (09:48→21:00)
[2021-11-30] MEDS: LIDOCAINE 5% PATCH TOP SCH (09:49)
[2021-11-30] MEDS: AMIODARONE HCL 200 MG TABLET PO SCH ×2 (09:49→21:00)
[2021-11-30] MEDS: ASCORBIC ACID 500 MG TABLET PO SCH (09:49)
[2021-11-30] MEDS: ACETAMINOPHEN 325MG TABLET PO PRN (12:25)
[2021-11-30] MEDS: IPRATROPIUM/ALBUTEROL 0.5-3(2.5)MG/3ML NEB HHN PRN (18:02)
[2021-11-30 20:00] VITALS: BP 136/41
[2021-11-30] MEDS: [UNRECOGNIZED DRUG - OTHER] OP SCH (20:47)
[2021-12-01] MEDS: POLYVINYL ALCOHOL OPHTH DROPS 15ML BOTHEYE SCH ×4 (00:35→18:00)
[2021-12-01] MEDS: METHYL SALICYLATE/MENTHOL CREAM 85GM TOP SCH ×6 (00:36→23:00)
[2021-12-01] MEDS: IPRATROPIUM/ALBUTEROL 0.5-3(2.5)MG/3ML NEB HHN SCH ×4 (01:27→19:47)
[2021-12-01] MEDS: BLOOD SUGAR DIAGNOSTIC STRIP TEST SCH ×4 (06:30→21:00)
[2021-12-01] MEDS: PANTOPRAZOLE 40MG DR TABLET PO SCH (07:25)
[2021-12-01 08:00] VITALS: BP 132/54
[2021-12-01] MEDS: RHOPRESSA 0.02% OP SCH (09:00)
[2021-12-01] MEDS: [UNRECOGNIZED DRUG - OTHER] OP SCH ×3 (09:00→17:00)
[2021-12-01] MEDS: INSULIN LISPRO 100 UNITS/ML SUBCUT SCH ×4 (09:00→21:00)
[2021-12-01] MEDS: SODIUM CHLORIDE 5% OP SCH ×3 (09:00→17:00)
[2021-12-01] MEDS: FERROUS SULFATE 325MG TABLET PO SCH ×3 (10:30→17:37)
[2021-12-01] MEDS: CYANOCOBALAMIN 1000MCG/ML VIAL IM SCH (10:30)
[2021-12-01] MEDS: APIXABAN 5 MG TABLET PO SCH (10:30)
[2021-12-01] MEDS: GUAIFENESIN 600MG ER TABLET PO SCH ×2 (10:30→21:18)
[2021-12-01] MEDS: AMIODARONE HCL 200 MG TABLET PO SCH ×2 (10:31→21:18)
[2021-12-01] MEDS: AMLODIPINE 10MG TABLET PO SCH (10:31)
[2021-12-01] MEDS: LIDOCAINE 5% PATCH TOP SCH (10:33)
[2021-12-01] MEDS: ASCORBIC ACID 500 MG TABLET PO SCH (10:35)
[2021-12-01] MEDS: ACETAMINOPHEN 325MG TABLET PO PRN (10:49)
[2021-12-01] MEDS ORDERED: BARIUM SULFATE 176 GM SUSP.RECON ONE (11:11)
[2021-12-01] MEDS: OMEPRAZOLE 20MG CAPSULE EXTENDED RELEASE PO SCH (17:37)
[2021-12-01 18:23] LABS: CREATINE KINASE 270 IU/L (26-192)
[2021-12-01 20:00] VITALS: BP 142/63
[2021-12-01 20:51] LABS: INR 1.2; PROTHROMBIN TIME 12.7 sec (9.6-11.0)
[2021-12-01] MEDS: [UNRECOGNIZED DRUG - OTHER] OP SCH (21:24)
[2021-12-02] MEDS: IPRATROPIUM/ALBUTEROL 0.5-3(2.5)MG/3ML NEB HHN SCH ×4 (01:55→20:51)
[2021-12-02] MEDS: METHYL SALICYLATE/MENTHOL CREAM 85GM TOP SCH ×3 (05:00→17:00)
[2021-12-02] MEDS: POLYVINYL ALCOHOL OPHTH DROPS 15ML BOTHEYE SCH ×3 (06:00→17:46)
[2021-12-02 06:28] LABS: BASOPHILS % 0.7 % (0.0-2.0); EOSINOPHILS % 3.3 % (0.0-5.0); LYMPHOCYTES % 8.3 % (20.0-50.0); MEAN CORPUSCULAR HEMOGLOBIN 27.8 pg (28.0-32.0); MEAN CORPUSCULAR VOLUME 86.7 fL (81.0-99.0); MEAN PLATELET VOLUME 9.4 fl (7.4-10.4); MONOCYTES % 8.8 % (2.0-8.0); NEUTROPHILS % 78.9 % (40.0-76.0); PLATELET 245 x1000/uL (130-400); RED BLOOD CELL COUNT 2.88 mill/uL (4.2-5.4); RED CELL DISTRIBUTION WIDTH 16.6 % (11.6-14.6)
[2021-12-02] MEDS: BLOOD SUGAR DIAGNOSTIC STRIP TEST SCH ×4 (06:30→21:00)
[2021-12-02 08:00] VITALS: BP 122/50
[2021-12-02] MEDS: RHOPRESSA 0.02% OP SCH (09:00)
[2021-12-02] MEDS: INSULIN LISPRO 100 UNITS/ML SUBCUT SCH ×4 (09:00→21:00)
[2021-12-02] MEDS: [UNRECOGNIZED DRUG - OTHER] OP SCH ×3 (09:00→17:00)
[2021-12-02] MEDS: SODIUM CHLORIDE 5% OP SCH ×3 (09:00→17:00)
[2021-12-02] MEDS: OMEPRAZOLE 20MG CAPSULE EXTENDED RELEASE PO SCH ×2 (09:59→17:53)
[2021-12-02] MEDS: ASCORBIC ACID 500 MG TABLET PO SCH (09:59)
[2021-12-02] MEDS: FERROUS SULFATE 325MG TABLET PO SCH ×3 (10:00→17:00)
[2021-12-02] MEDS: GUAIFENESIN 600MG ER TABLET PO SCH ×2 (10:00→21:00)
[2021-12-02] MEDS: AMIODARONE HCL 200 MG TABLET PO SCH ×2 (10:07→21:00)
[2021-12-02] MEDS: AMLODIPINE 10MG TABLET PO SCH (10:10)
[2021-12-02] MEDS: LIDOCAINE 5% PATCH TOP SCH (10:11)
[2021-12-02] MEDS: FUROSEMIDE 40MG TABLET PO SCH (11:37)
[2021-12-02 20:00] VITALS: BP 128/51
[2021-12-02] MEDS: [UNRECOGNIZED DRUG - OTHER] OP SCH (21:00)
[2021-12-03] MEDS: IPRATROPIUM/ALBUTEROL 0.5-3(2.5)MG/3ML NEB HHN SCH ×4 (01:10→20:25)
[2021-12-03] MEDS: METHYL SALICYLATE/MENTHOL CREAM 85GM TOP SCH ×4 (05:00→23:00)
[2021-12-03] MEDS: POLYVINYL ALCOHOL OPHTH DROPS 15ML BOTHEYE SCH ×4 (06:21→17:18)
[2021-12-03] MEDS: BLOOD SUGAR DIAGNOSTIC STRIP TEST SCH ×4 (06:21→21:09)
[2021-12-03 06:25] LABS: BASOPHILS % 0.9 % (0.0-2.0); EOSINOPHILS % 2.6 % (0.0-5.0); HEMATOCRIT. 25.9 % (36.0-48.0); HEMOGLOBIN. 8.6 g/dL (12.0-16.0); LYMPHOCYTES % 8.2 % (20.0-50.0); MEAN CORPUSCULAR HEMOGLOBIN 28.1 pg (28.0-32.0); MEAN CORPUSCULAR VOLUME 84.2 fL (81.0-99.0); MEAN PLATELET VOLUME 9.2 fl (7.4-10.4); MONOCYTES % 10.8 % (2.0-8.0); NEUTROPHILS % 77.5 % (40.0-76.0); PLATELET 273 x1000/uL (130-400); RED BLOOD CELL COUNT 3.07 mill/uL (4.2-5.4); RED CELL DISTRIBUTION WIDTH 16.9 % (11.6-14.6)
[2021-12-03 08:00] VITALS: BP 148/51
[2021-12-03] MEDS: OMEPRAZOLE 20MG CAPSULE EXTENDED RELEASE PO SCH ×2 (08:20→17:15)
[2021-12-03] MEDS: ASCORBIC ACID 500 MG TABLET PO SCH (08:20)
[2021-12-03] MEDS: AMIODARONE HCL 200 MG TABLET PO SCH ×2 (08:20→21:07)
[2021-12-03] MEDS: FUROSEMIDE 40MG TABLET PO SCH (08:20)
[2021-12-03] MEDS: GUAIFENESIN 600MG ER TABLET PO SCH ×2 (08:20→21:07)
[2021-12-03] MEDS: FERROUS SULFATE 325MG TABLET PO SCH ×3 (08:20→17:15)
[2021-12-03] MEDS: ACETAMINOPHEN 325MG TABLET PO PRN ×2 (08:21→19:05)
[2021-12-03] MEDS: AMLODIPINE 10MG TABLET PO SCH (08:21)
[2021-12-03] MEDS: RHOPRESSA 0.02% OP SCH (08:22)
[2021-12-03] MEDS: [UNRECOGNIZED DRUG - OTHER] OP SCH ×3 (08:22→17:17)
[2021-12-03] MEDS: SODIUM CHLORIDE 5% OP SCH ×3 (08:22→17:17)
[2021-12-03] MEDS: LIDOCAINE 5% PATCH TOP SCH (08:23)
[2021-12-03] MEDS: INSULIN LISPRO 100 UNITS/ML SUBCUT SCH ×4 (08:23→21:00)
[2021-12-03] MEDS ORDERED: GUAIFENESIN-DM 200MG-20MG/10ML UDC PO PRN (15:15)
[2021-12-03 20:00] VITALS: BP 130/48
[2021-12-03] MEDS: [UNRECOGNIZED DRUG - OTHER] OP SCH (21:08)
[2021-12-04] MEDS: IPRATROPIUM/ALBUTEROL 0.5-3(2.5)MG/3ML NEB HHN SCH ×4 (02:14→21:43)
[2021-12-04] MEDS: ACETAMINOPHEN 325MG TABLET PO PRN ×2 (03:20→17:08)
[2021-12-04] MEDS: METHYL SALICYLATE/MENTHOL CREAM 85GM TOP SCH ×4 (05:00→23:00)
[2021-12-04] MEDS: BLOOD SUGAR DIAGNOSTIC STRIP TEST SCH ×4 (05:20→21:00)
[2021-12-04] MEDS: POLYVINYL ALCOHOL OPHTH DROPS 15ML BOTHEYE SCH ×4 (05:20→17:06)
[2021-12-04 06:26] LABS: EOSINOPHILS % 3.4 % (0.0-5.0); HEMATOCRIT. 24.1 % (36.0-48.0); LYMPHOCYTES % 10.1 % (20.0-50.0); MEAN CORPUSCULAR HEMOGLOBIN 28.1 pg (28.0-32.0); MEAN CORPUSCULAR VOLUME 84.6 fL (81.0-99.0); MEAN PLATELET VOLUME 9.1 fl (7.4-10.4); MONOCYTES % 11.4 % (2.0-8.0); NEUTROPHILS % 74.1 % (40.0-76.0); PLATELET 248 x1000/uL (130-400); RED BLOOD CELL COUNT 2.85 mill/uL (4.2-5.4); RED CELL DISTRIBUTION WIDTH 16.6 % (11.6-14.6)
[2021-12-04] MEDS: INSULIN LISPRO 100 UNITS/ML SUBCUT SCH ×4 (06:38→21:00)
[2021-12-04] MEDS: TRAMADOL 50MG TABLET PO PRN ×2 (06:47→20:58)
[2021-12-04 08:00] VITALS: BP 159/56
[2021-12-04] MEDS: GUAIFENESIN 600MG ER TABLET PO SCH ×2 (09:00→20:44)
[2021-12-04] MEDS: RHOPRESSA 0.02% OP SCH (09:26)
[2021-12-04] MEDS: [UNRECOGNIZED DRUG - OTHER] OP SCH ×3 (09:26→17:06)
[2021-12-04] MEDS: SODIUM CHLORIDE 5% OP SCH ×3 (09:26→17:06)
[2021-12-04] MEDS: OMEPRAZOLE 20MG CAPSULE EXTENDED RELEASE PO SCH ×2 (09:27→17:08)
[2021-12-04] MEDS: FERROUS SULFATE 325MG TABLET PO SCH ×3 (09:27→17:08)
[2021-12-04] MEDS: FUROSEMIDE 40MG TABLET PO SCH (09:28)
[2021-12-04] MEDS: AMLODIPINE 10MG TABLET PO SCH (09:28)
[2021-12-04] MEDS: AMIODARONE HCL 200 MG TABLET PO SCH ×2 (09:28→22:18)
[2021-12-04] MEDS: ASCORBIC ACID 500 MG TABLET PO SCH (09:28)
[2021-12-04] MEDS: LIDOCAINE 5% PATCH TOP SCH (09:30)
[2021-12-04] MEDS ORDERED: NALOXONE HCL 0.4MG/ML VIAL IV PRN (11:45)
[2021-12-04 15:10] LABS: 25-HYDROXY VITAMIN D3 30 ng/mL (.)
[2021-12-04 20:00] VITALS: BP 149/30
[2021-12-04] MEDS: [UNRECOGNIZED DRUG - OTHER] OP SCH (20:46)
[2021-12-04] MEDS ORDERED: ZOLPIDEM TARTRATE 5MG TABLET PO PRN (21:00)
[2021-12-05] MEDS: IPRATROPIUM/ALBUTEROL 0.5-3(2.5)MG/3ML NEB HHN SCH ×4 (01:29→20:48)
[2021-12-05] MEDS: METHYL SALICYLATE/MENTHOL CREAM 85GM TOP SCH ×4 (05:35→23:00)
[2021-12-05] MEDS: POLYVINYL ALCOHOL OPHTH DROPS 15ML BOTHEYE SCH ×5 (05:36→23:01)
[2021-12-05 06:25] LABS: BASOPHILS % 0.9 % (0.0-2.0); EOSINOPHILS % 4.6 % (0.0-5.0); HEMATOCRIT. 25.5 % (36.0-48.0); HEMOGLOBIN. 8.3 g/dL (12.0-16.0); LYMPHOCYTES % 8.6 % (20.0-50.0); MEAN CORPUSCULAR HEMOGLOBIN 27.8 pg (28.0-32.0); MEAN CORPUSCULAR VOLUME 84.9 fL (81.0-99.0); MEAN PLATELET VOLUME 9.3 fl (7.4-10.4); NEUTROPHILS % 74.9 % (40.0-76.0); PLATELET 257 x1000/uL (130-400)
[2021-12-05 08:00] VITALS: BP 159/55
[2021-12-05] MEDS: INSULIN LISPRO 100 UNITS/ML SUBCUT SCH (08:42)
[2021-12-05] MEDS: OMEPRAZOLE 20MG CAPSULE EXTENDED RELEASE PO SCH ×2 (09:16→17:53)
[2021-12-05] MEDS: AMLODIPINE 10MG TABLET PO SCH (09:22)
[2021-12-05] MEDS: GUAIFENESIN 600MG ER TABLET PO SCH ×2 (09:22→20:23)
[2021-12-05] MEDS: FERROUS SULFATE 325MG TABLET PO SCH ×3 (09:22→17:53)
[2021-12-05] MEDS: FUROSEMIDE 40MG TABLET PO SCH (09:22)
[2021-12-05] MEDS: LIDOCAINE 5% PATCH TOP SCH (09:22)
[2021-12-05] MEDS: TRAMADOL 50MG TABLET PO PRN ×3 (09:22→23:02)
[2021-12-05] MEDS: AMIODARONE HCL 200 MG TABLET PO SCH ×2 (09:22→21:00)
[2021-12-05] MEDS: ASCORBIC ACID 500 MG TABLET PO SCH (09:22)
[2021-12-05] MEDS: RHOPRESSA 0.02% OP SCH (09:37)
[2021-12-05] MEDS: [UNRECOGNIZED DRUG - OTHER] OP SCH ×3 (09:37→18:01)
[2021-12-05] MEDS: SODIUM CHLORIDE 5% OP SCH ×3 (09:37→18:01)
[2021-12-05] MEDS ORDERED: BENZONATATE 100MG CAPSULE PO PRN (15:30)
[2021-12-05] MEDS: ONDANSETRON 4MG ODT PO PRN (15:34)
[2021-12-05] MEDS: ERGOCALCIFEROL 50000UNITS CAPSULE PO SCH (17:53)
[2021-12-05 20:00] VITALS: BP 141/46
[2021-12-05] MEDS: [UNRECOGNIZED DRUG - OTHER] OP SCH (20:22)
[2021-12-06] MEDS: IPRATROPIUM/ALBUTEROL 0.5-3(2.5)MG/3ML NEB HHN SCH ×4 (01:05→21:01)
[2021-12-06] MEDS: ONDANSETRON 4MG ODT PO PRN (06:06)
[2021-12-06] MEDS: METHYL SALICYLATE/MENTHOL CREAM 85GM TOP SCH ×5 (06:06→23:00)
[2021-12-06] MEDS: POLYVINYL ALCOHOL OPHTH DROPS 15ML BOTHEYE SCH ×3 (06:06→17:36)
[2021-12-06 07:37] LABS: EOSINOPHILS % 4.6 % (0.0-5.0); HEMATOCRIT. 25.2 % (36.0-48.0); HEMOGLOBIN. 8.1 g/dL (12.0-16.0); MEAN CORPUSCULAR HEMOGLOBIN 27.8 pg (28.0-32.0); MEAN CORPUSCULAR VOLUME 85.9 fL (81.0-99.0); MEAN PLATELET VOLUME 9.1 fl (7.4-10.4); MONOCYTES % 10.2 % (2.0-8.0); NEUTROPHILS % 72.2 % (40.0-76.0); PLATELET 263 x1000/uL (130-400); RED BLOOD CELL COUNT 2.93 mill/uL (4.2-5.4)
[2021-12-06 08:00] VITALS: BP 140/35
[2021-12-06] MEDS: SODIUM CHLORIDE 5% OP SCH ×3 (09:00→17:00)
[2021-12-06] MEDS: AMIODARONE HCL 200 MG TABLET PO SCH ×2 (09:00→21:35)
[2021-12-06] MEDS: [UNRECOGNIZED DRUG - OTHER] OP SCH ×3 (09:00→17:00)
[2021-12-06] MEDS: LIDOCAINE 5% PATCH TOP SCH ×2 (09:00→10:40)
[2021-12-06] MEDS: RHOPRESSA 0.02% OP SCH (09:00)
[2021-12-06] MEDS: FUROSEMIDE 40MG TABLET PO SCH (10:37)
[2021-12-06] MEDS: OMEPRAZOLE 20MG CAPSULE EXTENDED RELEASE PO SCH ×2 (10:37→17:37)
[2021-12-06] MEDS: ASCORBIC ACID 500 MG TABLET PO SCH (10:38)
[2021-12-06] MEDS: AMLODIPINE 10MG TABLET PO SCH (10:38)
[2021-12-06] MEDS: FERROUS SULFATE 325MG TABLET PO SCH ×3 (10:38→17:37)
[2021-12-06] MEDS: GUAIFENESIN 600MG ER TABLET PO SCH ×2 (10:39→21:37)
[2021-12-06 20:00] VITALS: BP 125/25
[2021-12-06] MEDS: [UNRECOGNIZED DRUG - OTHER] OP SCH (21:34)
[2021-12-07] MEDS: IPRATROPIUM/ALBUTEROL 0.5-3(2.5)MG/3ML NEB HHN SCH ×3 (01:25→21:18)
[2021-12-07] MEDS: METHYL SALICYLATE/MENTHOL CREAM 85GM TOP SCH ×4 (05:00→23:00)
[2021-12-07] MEDS: POLYVINYL ALCOHOL OPHTH DROPS 15ML BOTHEYE SCH ×3 (05:48→12:00)
[2021-12-07 08:00] VITALS: BP 98/51
[2021-12-07] MEDS: AMLODIPINE 10MG TABLET PO SCH ×2 (09:00→09:28)
[2021-12-07] MEDS: AMIODARONE HCL 200 MG TABLET PO SCH ×2 (09:00→09:28)
[2021-12-07] MEDS: RHOPRESSA 0.02% OP SCH (09:00)
[2021-12-07] MEDS: SODIUM CHLORIDE 5% OP SCH (09:00)
[2021-12-07] MEDS: [UNRECOGNIZED DRUG - OTHER] OP SCH (09:00)
[2021-12-07] MEDS: GUAIFENESIN 600MG ER TABLET PO SCH ×2 (09:27→21:33)
[2021-12-07] MEDS: FUROSEMIDE 40MG TABLET PO SCH (09:27)
[2021-12-07] MEDS: FERROUS SULFATE 325MG TABLET PO SCH ×3 (09:27→16:48)
[2021-12-07] MEDS: ASCORBIC ACID 500 MG TABLET PO SCH (09:27)
[2021-12-07] MEDS: ACETAMINOPHEN 325MG TABLET PO PRN ×2 (09:28→16:48)
[2021-12-07] MEDS: LIDOCAINE 5% PATCH TOP SCH (09:29)
[2021-12-07] MEDS: OMEPRAZOLE 20MG CAPSULE EXTENDED RELEASE PO SCH ×2 (09:32→16:48)
[2021-12-07 17:15] LABS: BASOPHILS % 1.1 % (0.0-2.0); EOSINOPHILS % 3.4 % (0.0-5.0); HEMATOCRIT. 25.7 % (36.0-48.0); HEMOGLOBIN. 8.3 g/dL (12.0-16.0); LYMPHOCYTES % 12.2 % (20.0-50.0); MEAN CORPUSCULAR HEMOGLOBIN 27.5 pg (28.0-32.0); MEAN CORPUSCULAR VOLUME 85.7 fL (81.0-99.0); MEAN PLATELET VOLUME 8.8 fl (7.4-10.4); MONOCYTES % 9.7 % (2.0-8.0); NEUTROPHILS % 73.6 % (40.0-76.0); PLATELET 257 x1000/uL (130-400); RED CELL DISTRIBUTION WIDTH 17.1 % (11.6-14.6)
[2021-12-07 20:00] VITALS: BP 134/54
[2021-12-07] MEDS: [UNRECOGNIZED DRUG - OTHER] OP SCH (21:33)
[2021-12-07] MEDS: TRAMADOL 50MG TABLET PO PRN (21:43)
[2021-12-08] MEDS: IPRATROPIUM/ALBUTEROL 0.5-3(2.5)MG/3ML NEB HHN SCH ×4 (02:30→21:14)
[2021-12-08] MEDS: METHYL SALICYLATE/MENTHOL CREAM 85GM TOP SCH ×4 (05:00→21:41)
[2021-12-08] MEDS: POLYVINYL ALCOHOL OPHTH DROPS 15ML BOTHEYE SCH ×4 (06:00→17:28)
[2021-12-08 06:42] LABS: EOSINOPHILS % 2.8 % (0.0-5.0); HEMATOCRIT. 26.4 % (36.0-48.0); HEMOGLOBIN. 8.6 g/dL (12.0-16.0); LYMPHOCYTES % 10.7 % (20.0-50.0); MEAN CORPUSCULAR HEMOGLOBIN 27.7 pg (28.0-32.0); MEAN PLATELET VOLUME 9.2 fl (7.4-10.4); MONOCYTES % 10.3 % (2.0-8.0); NEUTROPHILS % 75.2 % (40.0-76.0); PLATELET 250 x1000/uL (130-400); RED BLOOD CELL COUNT 3.11 mill/uL (4.2-5.4); RED CELL DISTRIBUTION WIDTH 17.3 % (11.6-14.6)
[2021-12-08 08:00] VITALS: BP 159/41
[2021-12-08] MEDS: FERROUS SULFATE 325MG TABLET PO SCH ×3 (09:24→17:27)
[2021-12-08] MEDS: GUAIFENESIN 600MG ER TABLET PO SCH ×2 (09:24→21:40)
[2021-12-08] MEDS: OMEPRAZOLE 20MG CAPSULE EXTENDED RELEASE PO SCH ×2 (09:24→17:27)
[2021-12-08] MEDS: FUROSEMIDE 40MG TABLET PO SCH (09:24)
[2021-12-08] MEDS: ASCORBIC ACID 500 MG TABLET PO SCH (09:24)
[2021-12-08] MEDS: AMIODARONE HCL 200 MG TABLET PO SCH ×2 (09:25→21:40)
[2021-12-08] MEDS: RHOPRESSA 0.02% OP SCH (09:37)
[2021-12-08] MEDS: LIDOCAINE 5% PATCH TOP SCH (09:38)
[2021-12-08] MEDS: DOCUSATE SODIUM 250MG CAPSULE PO PRN (12:38)
[2021-12-08] MEDS: [UNRECOGNIZED DRUG - OTHER] OP SCH ×3 (12:40→17:28)
[2021-12-08] MEDS: SODIUM CHLORIDE 5% OP SCH ×3 (12:40→17:28)
[2021-12-08] MEDS: ONDANSETRON 4MG ODT PO PRN (19:10)
[2021-12-08] MEDS: TRAMADOL 50MG TABLET PO PRN (19:10)
[2021-12-08 20:00] VITALS: BP 144/53
[2021-12-08] MEDS: [UNRECOGNIZED DRUG - OTHER] OP SCH (21:42)
[2021-12-09] MEDS: METHYL SALICYLATE/MENTHOL CREAM 85GM TOP SCH ×4 (06:06→22:23)
[2021-12-09] MEDS: POLYVINYL ALCOHOL OPHTH DROPS 15ML BOTHEYE SCH ×4 (06:06→23:27)
[2021-12-09 08:00] VITALS: BP 152/50
[2021-12-09] MEDS: RHOPRESSA 0.02% OP SCH (09:00)
[2021-12-09] MEDS: IPRATROPIUM/ALBUTEROL 0.5-3(2.5)MG/3ML NEB HHN SCH ×2 (09:08→21:35)
[2021-12-09 09:43] LABS: BASOPHILS % 1.1 % (0.0-2.0); EOSINOPHILS % 5.2 % (0.0-5.0); HEMATOCRIT. 26.7 % (36.0-48.0); HEMOGLOBIN. 8.6 g/dL (12.0-16.0); LYMPHOCYTES % 13.4 % (20.0-50.0); MEAN CORPUSCULAR HEMOGLOBIN 28.2 pg (28.0-32.0); MEAN CORPUSCULAR VOLUME 87.8 fL (81.0-99.0); MONOCYTES % 11.6 % (2.0-8.0); NEUTROPHILS % 68.7 % (40.0-76.0); PLATELET 216 x1000/uL (130-400); RED BLOOD CELL COUNT 3.05 mill/uL (4.2-5.4); RED CELL DISTRIBUTION WIDTH 17.5 % (11.6-14.6)
[2021-12-09] MEDS: AMIODARONE HCL 200 MG TABLET PO SCH ×2 (10:24→21:04)
[2021-12-09] MEDS: FUROSEMIDE 40MG TABLET PO SCH (10:26)
[2021-12-09] MEDS: AMLODIPINE 10MG TABLET PO SCH (10:27)
[2021-12-09] MEDS: ASCORBIC ACID 500 MG TABLET PO SCH (10:27)
[2021-12-09] MEDS: FERROUS SULFATE 325MG TABLET PO SCH ×3 (10:27→17:39)
[2021-12-09] MEDS: DOCUSATE SODIUM 250MG CAPSULE PO PRN (10:27)
[2021-12-09] MEDS: LIDOCAINE 5% PATCH TOP SCH (10:31)
[2021-12-09] MEDS: OMEPRAZOLE 20MG CAPSULE EXTENDED RELEASE PO SCH ×2 (10:32→17:39)
[2021-12-09] MEDS: GUAIFENESIN 600MG ER TABLET PO SCH ×2 (12:04→21:04)
[2021-12-09] MEDS: [UNRECOGNIZED DRUG - OTHER] OP SCH ×3 (12:06→17:42)
[2021-12-09] MEDS: SODIUM CHLORIDE 5% OP SCH ×3 (12:06→17:42)
[2021-12-09] MEDS: [UNRECOGNIZED DRUG - OTHER] OP SCH (12:07)
[2021-12-09] MEDS: IPRATROPIUM/ALBUTEROL 0.5-3(2.5)MG/3ML NEB HHN PRN (13:56)
[2021-12-09 20:00] VITALS: BP 124/48
[2021-12-10] MEDS: METHYL SALICYLATE/MENTHOL CREAM 85GM TOP SCH ×4 (05:00→22:48)
[2021-12-10] MEDS: POLYVINYL ALCOHOL OPHTH DROPS 15ML BOTHEYE SCH ×3 (06:00→16:57)
[2021-12-10 08:00] VITALS: BP 132/50
[2021-12-10] MEDS: AMIODARONE HCL 200 MG TABLET PO SCH ×2 (08:52→20:39)
[2021-12-10] MEDS: ASCORBIC ACID 500 MG TABLET PO SCH (08:53)
[2021-12-10] MEDS: OMEPRAZOLE 20MG CAPSULE EXTENDED RELEASE PO SCH ×2 (08:53→16:49)
[2021-12-10] MEDS: FUROSEMIDE 40MG TABLET PO SCH (08:55)
[2021-12-10] MEDS: FERROUS SULFATE 325MG TABLET PO SCH ×3 (08:55→16:49)
[2021-12-10] MEDS: AMLODIPINE 10MG TABLET PO SCH (08:59)
[2021-12-10] MEDS ORDERED: LACTULOSE 20G/30ML UDC PO SCH (09:00)
[2021-12-10] MEDS: LIDOCAINE 5% PATCH TOP SCH (09:01)
[2021-12-10] MEDS: GUAIFENESIN 600MG ER TABLET PO SCH ×2 (09:02→20:39)
[2021-12-10] MEDS: RHOPRESSA 0.02% OP SCH (09:05)
[2021-12-10] MEDS: SODIUM CHLORIDE 5% OP SCH ×3 (09:05→16:56)
[2021-12-10] MEDS: [UNRECOGNIZED DRUG - OTHER] OP SCH ×3 (09:05→16:56)
[2021-12-10] MEDS: IPRATROPIUM/ALBUTEROL 0.5-3(2.5)MG/3ML NEB HHN SCH ×4 (10:11→21:08)
[2021-12-10] MEDS ORDERED: BISACODYL 10MG SUPP PR PRN (12:45)
[2021-12-10 20:00] VITALS: BP 140/51
[2021-12-10] MEDS: [UNRECOGNIZED DRUG - OTHER] OP SCH (20:37)
[2021-12-11] MEDS: METHYL SALICYLATE/MENTHOL CREAM 85GM TOP SCH ×5 (05:00→23:00)
[2021-12-11] MEDS: POLYVINYL ALCOHOL OPHTH DROPS 15ML BOTHEYE SCH ×4 (06:00→23:13)
[2021-12-11 06:31] LABS: BASOPHILS % 1.1 % (0.0-2.0); EOSINOPHILS % 5.6 % (0.0-5.0); HEMATOCRIT. 26.5 % (36.0-48.0); HEMOGLOBIN. 8.7 g/dL (12.0-16.0); LYMPHOCYTES % 15.9 % (20.0-50.0); MEAN CORPUSCULAR HEMOGLOBIN 27.8 pg (28.0-32.0); MEAN CORPUSCULAR VOLUME 84.4 fL (81.0-99.0); MEAN PLATELET VOLUME 9.2 fl (7.4-10.4); MONOCYTES % 12.7 % (2.0-8.0); NEUTROPHILS % 64.7 % (40.0-76.0); PLATELET 200 x1000/uL (130-400); RED BLOOD CELL COUNT 3.14 mill/uL (4.2-5.4); RED CELL DISTRIBUTION WIDTH 17.4 % (11.6-14.6)
[2021-12-11 08:00] VITALS: BP 137/64
[2021-12-11] MEDS: IPRATROPIUM/ALBUTEROL 0.5-3(2.5)MG/3ML NEB HHN SCH ×2 (08:58→14:40)
[2021-12-11] MEDS: [UNRECOGNIZED DRUG - OTHER] OP SCH ×3 (09:00→17:00)
[2021-12-11] MEDS: RHOPRESSA 0.02% OP SCH (09:00)
[2021-12-11] MEDS: SODIUM CHLORIDE 5% OP SCH ×3 (09:00→17:00)
[2021-12-11] MEDS: FERROUS SULFATE 325MG TABLET PO SCH ×3 (09:49→17:37)
[2021-12-11] MEDS: GUAIFENESIN 600MG ER TABLET PO SCH ×2 (09:49→20:22)
[2021-12-11] MEDS: AMIODARONE HCL 200 MG TABLET PO SCH ×2 (09:49→20:22)
[2021-12-11] MEDS: ASCORBIC ACID 500 MG TABLET PO SCH (09:49)
[2021-12-11] MEDS: FUROSEMIDE 40MG TABLET PO SCH (09:49)
[2021-12-11] MEDS: OMEPRAZOLE 20MG CAPSULE EXTENDED RELEASE PO SCH ×2 (09:49→17:37)
[2021-12-11] MEDS: AMLODIPINE 10MG TABLET PO SCH (09:51)
[2021-12-11] MEDS: LIDOCAINE 5% PATCH TOP SCH (09:52)
[2021-12-11] MEDS: ACETAMINOPHEN 325MG TABLET PO PRN ×3 (09:53→22:54)
[2021-12-11 20:13] VITALS: BP 121/22
[2021-12-11] MEDS: [UNRECOGNIZED DRUG - OTHER] OP SCH ×2 (20:23→20:27)
[2021-12-11] MEDS: TRAMADOL 50MG TABLET PO PRN (23:41)
[2021-12-12] MEDS: METHYL SALICYLATE/MENTHOL CREAM 85GM TOP SCH ×4 (05:00→23:00)
[2021-12-12] MEDS: POLYVINYL ALCOHOL OPHTH DROPS 15ML BOTHEYE SCH ×3 (05:35→17:56)
[2021-12-12] MEDS: IPRATROPIUM/ALBUTEROL 0.5-3(2.5)MG/3ML NEB HHN SCH ×3 (07:40→20:53)
[2021-12-12 08:00] VITALS: BP 128/22
[2021-12-12] MEDS: AMLODIPINE 10MG TABLET PO SCH (09:00)
[2021-12-12] MEDS: AMIODARONE HCL 200 MG TABLET PO SCH ×2 (09:00→21:00)
[2021-12-12] MEDS: FERROUS SULFATE 325MG TABLET PO SCH ×3 (09:21→17:55)
[2021-12-12] MEDS: FUROSEMIDE 40MG TABLET PO SCH (09:21)
[2021-12-12] MEDS: GUAIFENESIN 600MG ER TABLET PO SCH ×2 (09:21→21:26)
[2021-12-12] MEDS: ASCORBIC ACID 500 MG TABLET PO SCH (09:21)
[2021-12-12] MEDS: RHOPRESSA 0.02% OP SCH (09:22)
[2021-12-12] MEDS: LIDOCAINE 5% PATCH TOP SCH (09:22)
[2021-12-12] MEDS: [UNRECOGNIZED DRUG - OTHER] OP SCH ×3 (09:22→17:56)
[2021-12-12] MEDS: SODIUM CHLORIDE 5% OP SCH ×3 (09:22→17:56)
[2021-12-12] MEDS: OMEPRAZOLE 20MG CAPSULE EXTENDED RELEASE PO SCH ×2 (09:25→17:55)
[2021-12-12] MEDS: TRAMADOL 50MG TABLET PO PRN (10:10)
[2021-12-12 17:40] LABS: BASOPHILS % 0.9 % (0.0-2.0); EOSINOPHILS % 6.7 % (0.0-5.0); HEMOGLOBIN. 8.6 g/dL (12.0-16.0); LYMPHOCYTES % 16.2 % (20.0-50.0); MEAN CORPUSCULAR HEMOGLOBIN 27.6 pg (28.0-32.0); MEAN CORPUSCULAR VOLUME 86.4 fL (81.0-99.0); MEAN PLATELET VOLUME 9.2 fl (7.4-10.4); MONOCYTES % 9.8 % (2.0-8.0); NEUTROPHILS % 66.4 % (40.0-76.0); PLATELET 200 x1000/uL (130-400); RED BLOOD CELL COUNT 3.13 mill/uL (4.2-5.4); RED CELL DISTRIBUTION WIDTH 17.6 % (11.6-14.6)
[2021-12-12] MEDS: ERGOCALCIFEROL 50000UNITS CAPSULE PO SCH (17:55)
[2021-12-12 20:00] VITALS: BP 130/42
[2021-12-12] MEDS: [UNRECOGNIZED DRUG - OTHER] OP SCH (21:00)
[2021-12-13] MEDS: IPRATROPIUM/ALBUTEROL 0.5-3(2.5)MG/3ML NEB HHN SCH
[2021-12-13] MEDS: POLYVINYL ALCOHOL OPHTH DROPS 15ML BOTHEYE SCH
[2021-12-13] MEDS: METHYL SALICYLATE/MENTHOL CREAM 85GM TOP SCH ×2 (05:00→11:00)
[2021-12-13] MEDS: TRAMADOL 50MG TABLET PO PRN (05:15)
[2021-12-13 08:00] VITALS: BP 139/47
[2021-12-13] MEDS: [UNRECOGNIZED DRUG - OTHER] OP SCH (09:00)
[2021-12-13] MEDS: SODIUM CHLORIDE 5% OP SCH (09:00)
[2021-12-13] MEDS ORDERED: POLYETHYLENE GLYCOL 3350 (17GM) 1 DOSE PACK PO SCH (09:00)
[2021-12-13] MEDS: RHOPRESSA 0.02% OP SCH (09:00)
[2021-12-13] MEDS: GUAIFENESIN 600MG ER TABLET PO SCH (09:00)
[2021-12-13] MEDS: OMEPRAZOLE 20MG CAPSULE EXTENDED RELEASE PO SCH (10:07)
[2021-12-13] MEDS: ASCORBIC ACID 500 MG TABLET PO SCH (10:07)
[2021-12-13] MEDS: FERROUS SULFATE 325MG TABLET PO SCH ×2 (10:07→13:59)
[2021-12-13] MEDS: AMLODIPINE 10MG TABLET PO SCH (10:07)
[2021-12-13] MEDS: AMIODARONE HCL 200 MG TABLET PO SCH (10:07)
[2021-12-13] MEDS: FUROSEMIDE 40MG TABLET PO SCH (10:07)
[2021-12-13] MEDS: LIDOCAINE 5% PATCH TOP SCH (10:08)
[2021-12-13 12:09] VITALS: BP 139/62
== END 2021-12-13 14:15 | DRG 64 ==
PROVIDERS: ADMIT Psychiatry & Neurology Neurology; ATTEND Internal Medicine
DX: I63.40 Cerebral infarction due to embolism of unspecified cerebral artery (principal); I21.4 Non-ST elevation (NSTEMI) myocardial infarction; K57.91 Diverticulosis of intestine, part unspecified, without perforation or abscess with bleeding; I50.32 Chronic diastolic (congestive) heart failure; Z68.41 Body mass index [BMI] 40.0-44.9, adult; G93.40 Encephalopathy, unspecified; I48.91 Unspecified atrial fibrillation; I11.0 Hypertensive heart disease with heart failure; E66.01 Morbid (severe) obesity due to excess calories; R15.9 Full incontinence of feces; R32 Unspecified urinary incontinence; M13.0 Polyarthritis, unspecified; Z95.5 Presence of coronary angioplasty implant and graft; I25.10 Atherosclerotic heart disease of native coronary artery without angina pectoris; K21.9 Gastro-esophageal reflux disease without esophagitis; J44.9 Chronic obstructive pulmonary disease, unspecified; Z91.81 History of falling; D69.6 Thrombocytopenia, unspecified; I65.23 Occlusion and stenosis of bilateral carotid arteries; E78.5 Hyperlipidemia, unspecified; E55.9 Vitamin D deficiency, unspecified; R11.0 Nausea; E11.9 Type 2 diabetes mellitus without complications; R29.810 Facial weakness; R47.81 Slurred speech; M77.9 Enthesopathy, unspecified; F01.50 Vascular dementia, unspecified severity, without behavioral disturbance, psychotic disturbance, mood disturbance, and anxiety; Z87.891 Personal history of nicotine dependence; I25.2 Old myocardial infarction; R60.0 Localized edema; Z74.09 Other reduced mobility; E53.8 Deficiency of other specified B group vitamins; Z20.822 Contact with and (suspected) exposure to COVID-19; D64.9 Anemia, unspecified; E11.40 Type 2 diabetes mellitus with diabetic neuropathy, unspecified; F32.A Depression, unspecified; F41.9 Anxiety disorder, unspecified; I27.21 Secondary pulmonary arterial hypertension; Z74.01 Bed confinement status; Z79.01 Long term (current) use of anticoagulants
CPT/HCPCS: 36415; 71045; 73030; 73610; 74230; 80048; 80053; 82270; 82306; 82550; 82607; 82728; 82746; 82962; 83540; 83550; 83605; 84443; 85014; 85018; 85025; 85044; 87426; 92523; 92610; 92611; 93970; 94640; 97110; 97162; 97166; 97530; 97535; J3420; Q0162

== ENCOUNTER 2022-04-29 15:00 | Inpatient (IN) | payer MEDICARE, MEDICAID ==
[~2022-04-29] VITALS: Ht 162.6 cm; Wt 88.0 kg
[2022-04-29] MEDS ORDERED: FAMOTIDINE 20MG/2ML VIAL IV ONE (16:15)
[2022-04-29] MEDS ORDERED: SODIUM CHLORIDE 0.9% 1,000 ML IV ONE (16:15)
[2022-04-29 17:21] LABS: BASOPHILS % 0.7 % (0.0-2.0); EOSINOPHILS % 1.8 % (0.0-5.0); HEMATOCRIT. 30.6 % (36.0-48.0); HEMOGLOBIN. 9.8 g/dL (12.0-16.0); LYMPHOCYTES % 23.8 % (20.0-50.0); MEAN PLATELET VOLUME 9.5 fl (7.4-10.4); MONOCYTES % 8.8 % (2.0-8.0); NEUTROPHILS % 64.9 % (40.0-76.0); PLATELET 155 x1000/uL (130-400); RED BLOOD CELL COUNT 3.64 mill/uL (4.2-5.4); RED CELL DISTRIBUTION WIDTH 17.1 % (11.6-14.6)
[2022-04-29 17:30] LABS: INR 1.1; PROTHROMBIN TIME 11.7 sec (9.6-11.0)
[2022-04-29 17:36] LABS: CHLORIDE 109 mEq/L (98-107)
[2022-04-29] MEDS ORDERED: FAMOTIDINE 20MG/2ML VIAL IV SCH (21:45)
[2022-04-30] MEDS ORDERED: KETOROLAC 15MG/ML VIAL IV ONE (00:30)
[2022-04-30] MEDS ORDERED: HYDROCODONE/ACETAMINOPHEN 7.5/325MG TABLET PO PRN (02:00)
[2022-04-30] MEDS ORDERED: ONDANSETRON HCL 4MG/2ML INJ IV PRN (02:00)
[2022-04-30] MEDS ORDERED: NA PHOS,M-B/NA PHOS,DI-BA ENEMA 118ML PR PRN (02:00)
[2022-04-30] MEDS ORDERED: DOCUSATE SODIUM 100MG CAPSULE PO PRN (02:00)
[2022-04-30] MEDS ORDERED: HYDROCODONE/ACETAMINOPHEN 5/325MG TABLET PO PRN (02:00)
[2022-04-30] MEDS ORDERED: DEXTROSE 50% WATER 50ML SYRINGE IV PRN (02:00)
[2022-04-30] MEDS ORDERED: ACETAMINOPHEN 325MG TABLET PO PRN ×2 (02:00)
[2022-04-30] MEDS ORDERED: DIPHENHYDRAMINE 50MG/ML VIAL IV PRN (02:00)
[2022-04-30] MEDS ORDERED: MAGNESIUM/ALUMINUM HYDROXIDE/SIMETHICONE 30ML UDC PO PRN (02:00)
[2022-04-30] MEDS ORDERED: GUAIFENESIN 200MG/10ML SUGAR FREE UDC PO PRN (02:00)
[2022-04-30] MEDS ORDERED: IPRATROPIUM/ALBUTEROL 0.5-3(2.5)MG/3ML NEB HHN PRN (02:00)
[2022-04-30] MEDS ORDERED: SODIUM CHLORIDE 0.45% 1,000 ML IV ONE (02:15)
[2022-04-30] MEDS: AMLODIPINE 5MG TABLET PO SCH ×2 (03:00→09:00)
[2022-04-30 03:24] LABS: CLARITY URINE CLOUDY (CLEAR); COLOR URINE YELLOW (YELLOW); KETONES URINE NEGATIVE (NEGATIVE); LEUKOCYTE ESTERASE URINE 1+ (NEGATIVE); NITRITE URINE NEGATIVE (NEGATIVE); OCCULT BLOOD URINE TRACE (NEGATIVE); PROTEIN URINE 2+ (NEGATIVE); SPECIFIC GRAVITY URINE 1.012 (1.005-1.030); UROBILINOGEN URINE 0.2 E.U./dL (0.2-1.0)
[2022-04-30] MEDS: CLONIDINE 0.1MG TABLET PO PRN (05:07)
[2022-04-30] MEDS: BLOOD SUGAR DIAGNOSTIC STRIP TEST SCH ×3 (07:20→20:34)
[2022-04-30] MEDS: INSULIN LISPRO 100 UNITS/ML SUBCUT SCH ×3 (07:50→20:35)
[2022-04-30] MEDS: ENOXAPARIN 30MG/0.3ML SYR SUBCUT SCH (09:00)
[2022-04-30] MEDS: PANTOPRAZOLE 40MG DR TABLET PO SCH (10:01)
[2022-04-30 10:11] VITALS: BP 165/51
[2022-04-30 12:54] LABS: HEMATOCRIT. 30.9 % (36.0-48.0); LYMPHOCYTES % 21.3 % (20.0-50.0); MEAN CORPUSCULAR HEMOGLOBIN 27.3 pg (28.0-32.0); MEAN CORPUSCULAR VOLUME 84.2 fL (81.0-99.0); MONOCYTES % 8.7 % (2.0-8.0); PLATELET 153 x1000/uL (130-400); RED BLOOD CELL COUNT 3.67 mill/uL (4.2-5.4); RED CELL DISTRIBUTION WIDTH 17.4 % (11.6-14.6)
[2022-04-30 13:15] LABS: T4 FREE 1.83 ng/dL (0.76-1.46)
[2022-04-30 14:11] LABS: FERRITIN 36 ng/mL (10-291)
[2022-04-30 14:21] LABS: VITAMIN B12 SERUM 715 pg/mL (211-911)
[2022-04-30 20:00] VITALS: BP 153/57
[2022-04-30] MEDS ORDERED: NALOXONE HCL 0.4MG/ML VIAL IV PRN (21:00)
[2022-05-01] MEDS: BLOOD SUGAR DIAGNOSTIC STRIP TEST SCH ×4 (06:10→20:48)
[2022-05-01] MEDS: PANTOPRAZOLE 40MG DR TABLET PO SCH (07:20)
[2022-05-01] MEDS: INSULIN LISPRO 100 UNITS/ML SUBCUT SCH ×4 (07:50→20:49)
[2022-05-01] MEDS: AMLODIPINE 5MG TABLET PO SCH (09:43)
[2022-05-01] MEDS: ENOXAPARIN 30MG/0.3ML SYR SUBCUT SCH (09:43)
[2022-05-01 12:00] VITALS: BP 145/52
[2022-05-01 16:00] VITALS: BP 181/46
[2022-05-01 19:44] VITALS: BP 182/51
[2022-05-02 02:10] VITALS: BP 172/63
[2022-05-02] MEDS: PANTOPRAZOLE 40MG DR TABLET PO SCH (06:36)
[2022-05-02] MEDS: BLOOD SUGAR DIAGNOSTIC STRIP TEST SCH ×3 (06:47→18:05)
[2022-05-02] MEDS: INSULIN LISPRO 100 UNITS/ML SUBCUT SCH ×3 (06:47→17:50)
[2022-05-02 08:00] VITALS: BP 170/50
[2022-05-02] MEDS: AMLODIPINE 5MG TABLET PO SCH (09:39)
[2022-05-02] MEDS: ENOXAPARIN 30MG/0.3ML SYR SUBCUT SCH (09:40)
[2022-05-02 12:00] VITALS: BP 164/41
[2022-05-02 16:00] VITALS: BP 162/46
[2022-05-02] MEDS: CLONIDINE 0.1MG TABLET PO PRN (16:31)
[2022-05-02 19:32] VITALS: BP 146/72
[2022-05-03] MEDS ORDERED: FAMOTIDINE 20MG TABLET PO SCH (09:00)
[2022-05-15] MEDS ORDERED: OXYC-100 PO (02:00)
[2022-05-15] MEDS ORDERED: FURO-152 PO (02:00)
[2022-05-15] MEDS ORDERED: APIX5TAB PO (02:00)
[2022-05-15] MEDS ORDERED: SODI3.5O6 EACHEYE (02:00)
[2022-05-15] MEDS ORDERED: LIP40 PO (02:00)
[2022-05-15] MEDS ORDERED: OMEP20TA15 PO (02:00)
[2022-05-15] MEDS ORDERED: AMLO10TA4 PO (02:00)
[2022-05-15] MEDS ORDERED: [UNRECOGNIZED DRUG - CODE] EACHEYE (02:06)
== END 2022-05-02 21:06 | disposition home or self-care (01) | DRG 74 ==
LOC: ER 15:00 → MICUSO 04-30 02:39 → 6EST 04-30 05:26
PROVIDERS: ADMIT Hospitalist; ATTEND Hospitalist
DX: E11.43 Type 2 diabetes mellitus with diabetic autonomic (poly)neuropathy (principal); N17.9 Acute kidney failure, unspecified; I13.0 Hypertensive heart and chronic kidney disease with heart failure and stage 1 through stage 4 chronic kidney disease, or unspecified chronic kidney disease; E44.1 Mild protein-calorie malnutrition; K57.30 Diverticulosis of large intestine without perforation or abscess without bleeding; K31.84 Gastroparesis; I25.10 Atherosclerotic heart disease of native coronary artery without angina pectoris; Z20.822 Contact with and (suspected) exposure to COVID-19; I48.0 Paroxysmal atrial fibrillation; E11.22 Type 2 diabetes mellitus with diabetic chronic kidney disease; K59.09 Other constipation; N18.9 Chronic kidney disease, unspecified; K80.20 Calculus of gallbladder without cholecystitis without obstruction; I65.23 Occlusion and stenosis of bilateral carotid arteries; J44.9 Chronic obstructive pulmonary disease, unspecified; I50.9 Heart failure, unspecified; K21.9 Gastro-esophageal reflux disease without esophagitis; M19.90 Unspecified osteoarthritis, unspecified site; D63.8 Anemia in other chronic diseases classified elsewhere; G89.29 Other chronic pain; I67.1 Cerebral aneurysm, nonruptured; Z86.73 Personal history of transient ischemic attack (TIA), and cerebral infarction without residual deficits; Z68.29 Body mass index [BMI] 29.0-29.9, adult; Z95.5 Presence of coronary angioplasty implant and graft
CPT/HCPCS: 36415; 71045; 74176; 80048; 80053; 80061; 81003; 82550; 82607; 82728; 82746; 82962; 83036; 83540; 83550; 84439; 84443; 84484; 85025; 87070; 87426; 93005; 93970; 97162; 97535; 99285; J1650; J1885; J3490; J7030